=== PATIENT | male | born 1960 | race African-American/Black ===

== ENCOUNTER 2017-06-06 02:06 | Inpatient (IN) | payer MEDICAID ==
[2017-06-06 02:42] VITALS: BP 129/78
[2017-06-06] MEDS ORDERED: Morphine Sulfate 2 mg/mL 1mL Syr IVP PRN (03:14)
[2017-06-06] MEDS ORDERED: Magnesium Hydroxide (MOM) 30 mL UDC PO PRN (03:14)
[2017-06-06] MEDS ORDERED: Maalox 30 mL Cup PO PRN (03:14)
[2017-06-06] MEDS ORDERED: Levofloxacin 500mg/100mL 500 MG/100 ML BAG IV ONE (03:30)
[2017-06-06] MEDS: D5-0.9%NS 1,000 ML IV SCH (04:23)
[2017-06-06 04:24] LABS: URINE BILIRUBIN NEGATIVE (NEGATIVE); URINE BLOOD NEGATIVE (NEGATIVE); URINE GLUCOSE (UA) NEGATIVE (NEGATIVE); URINE KETONE NEGATIVE (NEGATIVE); URINE PH 6.5 (4.6 - 8.0); URINE PROTEIN NEGATIVE (NEGATIVE); URINE UROBILINOGEN 0.2 E.U./dL (0.2 - 1.0)
[2017-06-06 04:34] LABS: URINE COLOR YELLOW
[2017-06-06 04:35] LABS: URINE BACTERIA NONE SEEN /hpf (NONE SEEN); URINE EPITHELIAL CELLS NONE SEEN /lpf (FEW); URINE RBC NONE SEEN /hpf (0-5); URINE WBC NONE SEEN /hpf (0-5)
[2017-06-06] MEDS: metroNIDAZOLE 500mg/NS 100mL 500 MG/100 ML BAG IV SCH ×3 (05:24→20:46)
[2017-06-06] MEDS: Multivitamin Tab PO SCH (08:57)
[2017-06-06] MEDS: Levofloxacin 500mg/100mL Premix Bag IV SCH (08:59)
[2017-06-06] MEDS: Hydrocodone/APAP 10 mg/325 mg Tab PO PRN ×2 (09:12→20:45)
[2017-06-06 10:25] LABS: HEMATOCRIT 24.1 % (39.0-49.0); MEAN CELL VOLUME 73.2 fl (80-99); MEAN CORPUSCULAR HEMOGLOBIN 22.8 pg (26.0-30.0); MEAN CORPUSCULAR HGB CONC 31.1 pg (28.0-36.0); MEAN PLATELET VOLUME 7.2 fl; PLATELET COUNT 393 Th/cmm (150-400); RED BLOOD COUNT 3.29 Mil/cmm (4.30-5.70); RED CELL DISTRIBUTION WIDTH 20.4 % (11.5-20.0); WHITE BLOOD COUNT 7.9 Th/cmm (4.8-10.8)
[2017-06-06 10:52] LABS: HEMOGLOBIN 7.5 gm/dL (13.2-17.3)
[2017-06-06 11:56] LABS: ALB/GLOB RATIO 0.9 (1.0-1.8); ALKALINE PHOSPHATASE 110 U/L (34-104); ANION GAP 8.5 (7.0-16.0); BILIRUBIN,TOTAL 0.2 mg/dL (0.3-1.0); BUN - UREA NITROGEN 9 mg/dL (7-25); CALCIUM SERUM 7.8 mg/dL (8.6-10.3); CHLORIDE 108 mEq/L (98-107); CREATININE - SERUM 0.6 mg/dL (0.7-1.3); GLUCOSE 106 mg/dL (70-105); SGOT 18 U/L (13-39); SGPT/ALT 10 U/L (7-52); SODIUM SERUM 138 mEq/L (136-145)
[2017-06-06 12:29] LABS: POTASSIUM SERUM 2.5 mEq/L (3.5-5.1)
[2017-06-06] MEDS ORDERED: Potassium Chloride 20 mEq ER Tab PO ONE (13:00)
[2017-06-06] MEDS: Potassium Chloride 20 mEq ER Tab PO SCH ×2 (13:17→17:12)
[2017-06-06 13:53] LABS: ANISOCYTOSIS 1+; BAND NEUTROPHILE 10 % (0-10); MICROCYTOSIS 2+; NEUTROPHILS 81 % (40-80); PLATELET ESTIMATE ADEQUATE (NORMAL); PLATELET MORPHOLOGY PLATELET CLUMPS SEEN (NORMAL); TOTAL CELLS COUNTED 100
[2017-06-06] MEDS: POTASSIUM CHLORIDE IV SCH ×2 (14:23→22:33)
[2017-06-06] MEDS: SODIUM CHLORIDE 0.9% IV SCH ×2 (14:23→22:33)
[2017-06-06] MEDS: LIDOCAINE IV SCH ×2 (14:23→22:33)
--- NOTE | 2017-06-06 17:41 | History & Physical ---
ADMIT DATE: 06/06/2017 CHIEF COMPLAINT: ____. HISTORY OF PRESENT ILLNESS: The patient is a 57-year-old -[place] male who presented with abdominal pain for one ____ and generalized weakness. The patient ____ generalized weakness ____. No ____ or head injury. The patient's diarrhea going off and on for the last 2 months. The patient states the diarrhea is nonbloody. ____. ____ for 2 months ____. 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 PAST SURGICAL HISTORY: Negative, ____. SOCIAL HISTORY: No reports of smoking or drug use. PHYSICAL EXAMINATION: GENERAL: The patient is awake, alert. HEENT: Normocephalic, atraumatic. Extraocular movements intact. Oropharynx clear. NECK: Supple. No thyromegaly. CARDIOVASCULAR: S1, S2, tachycardic. RESPIRATORY: Clear. No wheezing or rhonchi. GASTROINTESTINAL: Soft, distended, tender. Positive bowel sounds. GENITOURINARY: No CVA tenderness. No suprapubic tenderness. BACK: No midline tenderness. EXTREMITIES: Equal pulses bilaterally. Positive edema. PSYCHIATRIC: Negative. SKIN: Negative. NEUROLOGIC: Intact. Extraocular movements are intact. VITAL SIGNS: On admission, temperature 98.5, pulse 72, blood pressure 129/78, respiratory rate 20, O2 98%. LABORATORY DATA: Labs on admission are as follows: Hematology: WBC ____, hemoglobin 7.5, hematocrit 24.1 and platelet count of 293, ____ neutrophils, 4% lymphocytes. ESR is 97. Chemistry: Sodium 138, potassium 3.5, chloride 108, bicarbonate 24, anion gap 8.5, BUN 9, creatinine 0.7. GFR is more than 60. Glucose 106, calcium 7.8, total bilirubin 0.2, AST 18, ALT 10, alkaline phosphatase 110, total protein ____, ____, albumin 2.2. Urinalysis negative. IMPRESSION: 1. Colitis. 2. Hypokalemia. 3. Near syncope. 4. Dehydration. 5. Human immunodeficiency virus/acquired immune deficiency syndrome. 6. History of colon transplant. 7. Anemia. 8. Hyperglycemia. 9. Hypercalcemia. 10. ____, severe. PLAN: The patient admitted to medical/surgical unit, seen by Dr. Jerzy Pritchett. Obtain further labs and consultation as needed. JOB# [id number]
[2017-06-06] MEDS ORDERED: VTE Chemical Prophylaxis Screen/Admission MC PRN (18:15)
--- NOTE | 2017-06-06 21:08 | Admit Criteria Form ---
Admit Criteria Forms - Admit Criteria Diagnosis: ABDOMINAL PAIN Clinical Indications for Admission to Inpatient Care (Place 'X' for any and all applicable criteria): Admission is indicated for ANY ONE of the following(1)(2)(3)(4)(5): [X]I. Inpatient admission required rather than observation care (Also use Abdominal Pain: Observation Care, as appropriate) because of ANY ONE of the following: [ ]a) Severe pain requiring acute inpatient management [ ]b) Identification of etiology/finding that requires inpatient care (eg, aortic dissection, free air) [ ]c) Absent bowel sounds with complete ileus(6) [ ]d) Suspected toxic megacolon [ X]e) Severe electrolyte abnormalities requiring inpatient care [ ]f) High fever or infection requiring inpatient admission as indicated by ANY ONE of following(7)(8): [ ] i) Appropriate outpatient or observational care antimicrobial treatment unavailable, not effective, or not feasible [ ] ii) Documented bacteremia [ ] iii) Temperature > 104.9 degrees F (oral) [ ] iv) T >103.1 F (oral) or < 96.8 F(rectal) that does not respond to all emergency treatment measures [ ]g) Signs of intestinal obstruction [B] [ ]h) Hemodynamic instability [ ]i) IV fluid to replace significant ongoing losses (greater than 3 L/m2 per day) (12)(13) [ ]j) Percutaneous or open drainage (eg, abscess, biliary tract ) procedures [ ]k) Parenteral nutrition regimen that must be implemented on inpatient basis [X]l) Other condition,treatment or monitoring requiring inpatient admission. [ ]II. Peritoneal signs present [ ]III. Surgery needed that cannot be performed on an ambulatory basis. [ ]IV. Evaluation requires patient to not eat or drink for extended period ( eg, more than 24 hours). [ ]V. Contraindications and/or Inappropriate clinical situations for Observational Care in patients with abdominal pain, when ANY ONE of the following is required: [ ]a) Thorough evaluation is required to prevent catastrophic events due to delays in diagnosing (e.g.Mesenteric ischemia) 1,3 [ ]b) Patient with severe pathology or with chronic symptoms unlikely to improve in the ED stay (3) [ ]. General contraindications and/or Inappropriate clinical situations for Observational Care in patients with abdominal pain, when ANY ONE of the following is required: [ ]a) Prediction of prolongation of LOS based on ANY ONE of the following may be considered as a contraindication for observational care 2, 3, 4, 5, 6, 7, 8, 9, 10, 11 [ ]i) Age > 65 yrs. [ ]ii) Patient arriving by ambulance [ ]iii) Patient with high acuity [ ]iv) Patient requiring vital sign monitoring [ ]v) Patient on IV medication [ ]b) Systolic blood pressures 180mmHg 3,12 [ ]c) Patient with altered mental status including delirium and other alteration of consciousness, (3) [ ]d) Patient whose discharge disposition will be to a residential home or rehabilitation home should not be managed in Emergency Department Observation Unit. CMS rule requires 3 days hospital stay before such placement.3,13 [ ]e) Patient with failure to thrive due to broad array of etiologies 3,16,17 [ ]f) Inability to ambulate 3,14 Extended stay beyond goal length of stay may be needed for(2)(3): [ ]a) Persistent abdominal pain with suspected intra-abdominal process [ ]b) Diagnosed condition requiring continued stay (e.g., pancreatitis, complicated diverticulitis) [ ]c) Surgery (e.g., colectomy) The original [employer] content created by [employer] has been revised. The portions of the content which have been revised are identified through the use of italic text or in bold, and [facility] has neither reviewed nor approved the modified material.All other unmodified content is copyright [employer]. Please see references footnoted in the original [facility] edition 2016 Admit Criteria Met?: Yes
--- NOTE | 2017-06-06 23:00 | Consultation ---
DATE OF CONSULTATION: 06/06/2017 GI CONSULT ADDENDUM MEDICATIONS: Here are Tylenol, [place], Maalox, Levaquin, Zestril, Ativan, milk of magnesia, Flagyl, morphine, multivitamin, and Zofran. PHYSICAL EXAMINATION: VITAL SIGNS: Temperature of 99.4, blood pressure 132/75, pulse of 80, respirations 19, O2 sats 98%. GENERAL: The patient is well-developed, thin male in no acute distress. CARDIOVASCULAR: Regular rate and rhythm. ABDOMEN: Soft, nontender, nondistended. EXTREMITIES: No edema. LABORATORY DATA: WBC 7.9, hemoglobin 7.5, MCV 73, platelet count is 393, creatinine is 0.6. Liver enzymes are essentially normal except for alkaline phosphatase 110. IMPRESSION: 1. Diarrhea, likely chronic, could be from multiple etiologies including CMV or infectious colitis, and less likely neoplasm or polyps. CT at [facility] did show acute anemia, most likely could be from GI blood loss or anemia of chronic disease, etc. 2. History of human immunodeficiency virus and acquired immunodeficiency syndrome. RECOMMENDATIONS: 1. We will check stool studies. 2. Check anemia labs. 3. May need upper endoscopy and colonoscopy if stool OB is positive here. Otherwise, outpatient GI workup can be done via the patient's HIV clinic, and the patient has regular outpatient followup. 4. Diet as tolerated. Thank you, Dr. Jn Pritchett for involving us in the care of your patient. If you have any further questions, please call us. JOB# [id number] SHERI
--- NOTE | 2017-06-07 02:12 | Consultation ---
DATE OF CONSULTATION: 06/06/2017 ADDENDUM HISTORY OF PRESENT ILLNESS: A 57-year-old male with history of HIV and possible AIDS with likely poor control on his HIV medications and possible noncompliance. He resides in [place]. He presented to the local [facility] in [facility] and was transferred to this facility for further evaluation. For the past year, he has been having diarrhea, probably about 5-6 times a day, nonbloody, and somewhat watery. He also has vague abdominal pain. He has chronic anemia. He never had a previous endoscopy or colonoscopy. We were asked to evaluate the patient for his diarrhea. He also has multiple complaints including peripheral neuropathy. DICTATION ENDED HERE SEE SEPARATELY DICTATED NOTE. JOB# [id number] SHERI
[2017-06-07] MEDS: D5-0.9%NS 1,000 ML IV SCH ×3 (04:27→22:30)
[2017-06-07] MEDS: metroNIDAZOLE 500mg/NS 100mL 500 MG/100 ML BAG IV SCH ×3 (04:28→21:46)
[2017-06-07 08:14] LABS: ALB/GLOB RATIO 0.9 (1.0-1.8); ALKALINE PHOSPHATASE 108 U/L (34-104); ANION GAP 7.4 (7.0-16.0); BILIRUBIN,TOTAL 0.2 mg/dL (0.3-1.0); BUN - UREA NITROGEN 12 mg/dL (7-25); CALCIUM SERUM 8.1 mg/dL (8.6-10.3); CARBON DIOXIDE 22.2 mEq/L (21.0-31.0); CHLORIDE 115 mEq/L (98-107); CREATININE - SERUM 0.6 mg/dL (0.7-1.3); GLUCOSE 81 mg/dL (70-105); LDH = LACTIC DEHYDROGENASE 180 U/L (140-271); LIPASE 21 U/L (11-82); POTASSIUM SERUM 3.6 mEq/L (3.5-5.1); SGOT 18 U/L (13-39); SGPT/ALT 10 U/L (7-52); SODIUM SERUM 141 mEq/L (136-145)
[2017-06-07] MEDS: Multivitamin Tab PO SCH (09:20)
[2017-06-07 10:54] LABS: INR 1.12 (0.5-1.4); PROTHROMBIN TIME (TEST) 11.7 SECONDS (9.5-11.5)
[2017-06-07] MEDS: Hydrocodone/APAP 10 mg/325 mg Tab PO PRN ×2 (12:15→20:18)
[2017-06-07] MEDS: Levofloxacin 500mg/100mL Premix Bag IV SCH (13:47)
[2017-06-07] MEDS: Hydrocodone/APAP 5mg/325mg Tab PO PRN (22:26)
--- NOTE | 2017-06-08 03:08 | Progress Notes ---
DATE: 06/07/2017 SUBJECTIVE: The patient is awake and alert. The patient is on IV antibiotics. OBJECTIVE: VITAL SIGNS: Temperature is 98.2, pulse of 92, blood pressure 138/77, respiratory rate 18, O2 sat 96% on room air. CARDIOVASCULAR: S1 and S2. RESPIRATORY: Clear. GASTROINTESTINAL: Soft. Positive bowel sounds. LABORATORY DATA: Hematology shows WBC 7.8, hemoglobin 9.1, hematocrit ____, platelet count 393,000. ESR 55, PT 11.7, INR 1.12. Chemistry: Sodium 141, potassium 3.6, chloride 113, bicarb 22, anion gap 7.4, BUN 12, creatinine 0.6. GFR is 160, glucose 81, calcium is 8.1, total bili 0.2, AST 18, ALT 10, alkaline phosphatase 108. LDH 180, total protein 4.9, albumin 2.3, globulin 2.6, and lipase 21. MICROBIOLOGY: MRSA screening from 06/06/2017 negative. Blood from 06/06/2017 shows no growth. ASSESSMENT: 1. Colitis. 2. HIV/AIDS. 3. History of corneal transplant. 4. Anemia (improved). 5. ____. 6. Hypoalbuminemia. 7. Protein-calorie malnutrition, severe. 8. Sepsis. PLAN: Continue current medication and treatment. Obtain labs in a.m. Awaiting culture results. Further recommendation per consultation service. JOB# [id number]
--- NOTE | 2017-06-08 03:20 | Consultation ---
DATE OF CONSULTATION: 06/06/2017 PRIMARY CARE PHYSICIAN: Dr. Pritchett. HISTORY OF PRESENT ILLNESS: This is a 57-year-old male who was brought to the Emergency Room with complaint of diarrhea. The patient also has HIV, was admitted to [facility]. Infectious consultation was called for further treatment. The patient has been taking Genvoya every day; however, he is not following with his HIV provider. GI consultation was called. PAST MEDICAL HISTORY: HIV. FAMILY HISTORY: Negative. SOCIAL HISTORY: Nonsmoker. REVIEW OF SYSTEMS: A 14-point review of system negative except above. PHYSICAL EXAMINATION: GENERAL: Alert, awake. Left eye visual impairment, thin built. HEENT: Mild pallor, no icterus or plaque. NECK: Supple. LUNGS: ____ breath sounds bilateral. CARDIOVASCULAR: S1, S2. ABDOMEN: Soft, bowel sounds present. LYMPHATIC: No thyromegaly, no cervical lymph nodes. DIAGNOSES: 1. Diarrhea, rule out toxic versus bacteria versus viral versus parasite. Stool studies needed. Empirically started on levofloxacin and Flagyl. GI evaluation for further workup. 2. Human immunodeficiency virus. Continue Genvoya. Rest of the care as ordered in [facility]. Thank you, Dr. Pritchett, for this consultation. JOB# [id number]
[2017-06-08] MEDS: metroNIDAZOLE 500mg/NS 100mL 500 MG/100 ML BAG IV SCH (04:26)
[2017-06-08 07:43] LABS: BUN - UREA NITROGEN 11 mg/dL (7-25); BUN/CREATININE RATIO 18.3; CALCIUM SERUM 7.7 mg/dL (8.6-10.3); CARBON DIOXIDE 22.2 mEq/L (21.0-31.0); CHLORIDE 112 mEq/L (98-107); CREATININE - SERUM 0.6 mg/dL (0.7-1.3); GLUCOSE 87 mg/dL (70-105); HEMATOCRIT 24.9 % (39.0-49.0); MEAN CELL VOLUME 73.5 fl (80-99); MEAN CORPUSCULAR HEMOGLOBIN 22.8 pg (26.0-30.0); MEAN CORPUSCULAR HGB CONC 30.9 pg (28.0-36.0); MEAN PLATELET VOLUME 7.3 fl; NEUTROPHILE ABSOLUTE 7.9 Th/cmm (1.8-8.0); PLATELET COUNT 391 Th/cmm (150-400); POTASSIUM SERUM 3.2 mEq/L (3.5-5.1); RED BLOOD COUNT 3.38 Mil/cmm (4.30-5.70); RED CELL DISTRIBUTION WIDTH 20.4 % (11.5-20.0); SODIUM SERUM 139 mEq/L (136-145); WHITE BLOOD COUNT 8.2 Th/cmm (4.8-10.8)
[2017-06-08 07:44] LABS: ALB/GLOB RATIO 0.9 (1.0-1.8); ALKALINE PHOSPHATASE 138 U/L (34-104); BILIRUBIN,TOTAL 0.2 mg/dL (0.3-1.0); SGOT 23 U/L (13-39); SGPT/ALT 11 U/L (7-52)
[2017-06-08] MEDS: Levofloxacin 500mg/100mL Premix Bag IV SCH (08:53)
[2017-06-08] MEDS: Hydrocodone/APAP 5mg/325mg Tab PO PRN (08:54)
[2017-06-08] MEDS: Multivitamin Tab PO SCH (08:54)
[2017-06-08 09:24] LABS: HEMOGLOBIN 7.7 gm/dL (13.2-17.3)
[2017-06-08 09:25] LABS: TOTAL CELLS COUNTED 100
[2017-06-08 09:26] LABS: BAND NEUTROPHILE 9 % (0-10); NEUTROPHILS 84 % (40-80)
[2017-06-08] MEDS ORDERED: Potassium Chloride 20 mEq ER Tab PO ONE (09:33)
[2017-06-08 12:13] LABS: FERRITIN 703 ng/mL (30-400); FOLIC ACID 3.4 ng/mL (>3.0); IRON SATURATION 9 % (15-55); TIBC (LCI) 115 ug/dL (250-450); UIBC 105 ug/dL (111-343)
[2017-06-08] MEDS: Ferrous Sulfate 325 MG TAB PO SCH ×2 (14:09→20:27)
[2017-06-08] MEDS: Hydrocodone/APAP 10 mg/325 mg Tab PO PRN ×2 (14:24→20:27)
[2017-06-08] MEDS: D5-0.9%NS 1,000 ML IV SCH (15:22)
--- NOTE | 2017-06-08 22:15 | Progress Notes ---
DATE: 06/08/2017 SUBJECTIVE: The patient is awake, alert. The patient is on IV antibiotics. The patient is on IV fluids. The patient has diarrhea. PHYSICAL EXAMINATION: VITAL SIGNS: Temperature 97.6, pulse of 97, blood pressure ____, respiratory rate 20, O2 sat ____% on room air. CARDIOVASCULAR: S1 and S2. RESPIRATORY: Clear. GASTROINTESTINAL: Soft. Positive bowel sounds. LABORATORY DATA: On admission, hematology: WBC 8.2, hemoglobin is 7.7, hematocrit 4.9, platelet count of 391. Chemistry: Sodium 139, potassium 3.2, chloride 112, bicarbonate 22, anion gap 8.0, BUN 11, creatinine 0.6, GFR is 160, glucose 87, calcium ____. Total bili 0.2, AST 23, ALT 11, alkaline phosphatase of 138. Total protein 4.3, albumin 2.0, globulin 2.0. Microbiology: MRSA screening from 06/06/2017 negative. Blood culture from 06/06/2017 shows no growth. Stool for C. diff 06/07/2017 negative. ASSESSMENT: 1.Sepsis. 2.Diarrhea. 3.Human immunodeficiency virus/acquired immune deficiency syndrome. 4.History of corneal transplant. 5.Anemia. 6.Hypoalbuminemia. 7.Protein calorie malnutrition, severe. 8.Colitis. PLAN: Continue current medication and treatment. Obtain labs in a.m. Awaiting final culture results. nurse care manager for discharge planning. JOB# [id number]
--- NOTE | 2017-06-09 05:01 | Progress Notes ---
DATE: 06/08/2017 SUBJECTIVE: Tolerating diet well. No abdominal pain, still some diarrhea. OBJECTIVE: VITAL SIGNS: Noted. GENERAL: The patient is a well-developed, well-nourished male in no acute distress. CARDIOVASCULAR: Regular rate and rhythm. LUNGS: With occasional rhonchi at the bases. ABDOMEN: Soft, nontender, nondistended. EXTREMITIES: No edema. LABORATORY DATA AND IMAGING: Complete blood count is normal, hemoglobin is 7.7. INR is normal. Creatinine is 0.6. Iron is 10, ____ saturation is 9. Ferritin is 703, which is high. Liver enzymes are essentially normal except for alkaline phosphatase, mildly elevated to 138. B12 and folic acid levels are normal. Stool OB is negative. IMPRESSION: 1.Chronic diarrhea for the last 1 year. This could be from a nonspecific colitis, from infectious or ischemic etiology, ____ a possibility of an occult neoplasm. 2.Anemia, which is multifactorial, could be from a combination of anemia of chronic disease and iron deficiency. 3.Human immunodeficiency virus/acquired immune deficiency syndrome. RECOMMENDATIONS: 1.Given the patient's social status and the fact that he resides in [place], it would be most prudent that he get a colonoscopy done ____ by his HIV clinic. That way results would be available to the clinic and then there would be no need to repeat workup. The patient at this point does not appear ill and inpatient endoscopic workup is not warranted. 2.Monitor hemoglobin and transfuse as necessary. 3.Iron supplementation as deemed necessary. 4.Continue oral Flagyl. 5.HIV care as per ID enterprise resource planning consultant as an inpatient and as an outpatient. Thank you. JOB# [id number]
[2017-06-09] MEDS: D5-0.9%NS 1,000 ML IV SCH ×2 (05:26→17:17)
[2017-06-09] MEDS: Hydrocodone/APAP 10 mg/325 mg Tab PO PRN ×2 (05:28→14:14)
[2017-06-09 07:49] LABS: MEAN CORPUSCULAR HEMOGLOBIN 22.9 pg (26.0-30.0); MEAN CORPUSCULAR HGB CONC 31.8 pg (28.0-36.0); MEAN PLATELET VOLUME 7.2 fl; PLATELET COUNT 367 Th/cmm (150-400); RED BLOOD COUNT 3.16 Mil/cmm (4.30-5.70); RED CELL DISTRIBUTION WIDTH 20.5 % (11.5-20.0); WHITE BLOOD COUNT 6.8 Th/cmm (4.8-10.8)
[2017-06-09 08:00] LABS: ANION GAP 8.5 (7.0-16.0); BUN - UREA NITROGEN 8 mg/dL (7-25); BUN/CREATININE RATIO 13.3; CALCIUM SERUM 7.6 mg/dL (8.6-10.3); CARBON DIOXIDE 20.7 mEq/L (21.0-31.0); CHLORIDE 110 mEq/L (98-107); CREATININE - SERUM 0.6 mg/dL (0.7-1.3); GLUCOSE 89 mg/dL (70-105); POTASSIUM SERUM 3.2 mEq/L (3.5-5.1); SODIUM SERUM 136 mEq/L (136-145)
[2017-06-09] MEDS: Ferrous Sulfate 325 MG TAB PO SCH ×3 (08:51→20:41)
[2017-06-09] MEDS: Multivitamin Tab PO SCH (08:51)
[2017-06-09] MEDS: Hydrocodone/APAP 5mg/325mg Tab PO PRN (08:52)
[2017-06-09 09:00] LABS: HEMATOCRIT 22.8 % (39.0-49.0); HEMOGLOBIN 7.2 gm/dL (13.2-17.3)
[2017-06-09] MEDS: Levofloxacin 500mg/100mL Premix Bag IV SCH (09:24)
[2017-06-09 10:10] LABS: ANISOCYTOSIS 1+; BAND NEUTROPHILE 9 % (0-10); MICROCYTOSIS 2+; NEUTROPHILS 81 % (40-80); PLATELET ESTIMATE ADEQUATE (NORMAL); PLATELET MORPHOLOGY NORMAL (NORMAL); TOTAL CELLS COUNTED 100
[2017-06-09] MEDS ORDERED: Potassium Chloride 20 mEq ER Tab PO ONE (12:33)
--- NOTE | 2017-06-09 12:35 | Infectious Disease Prog Note ---
Infectious Disease Subjective - Review of Systems Service Date: 06/09/17 Subjective: cc hiv gastroenteritis hpi- pt on iv bax d/w dr hartmann ros no fver o/e vss chest claer abd soft ext no edema dx hiv genvoya gastroenteritis po levaquib flagyl x 10 days Infectious Disease Objective - Results Result Diagrams: 06/09/17 06:40 06/09/17 06:40 Recent Labs: Laboratory Last Values WBC 6.8 Th/cmm (4.8-10.8) 06/09/17 06:40 Corrected WBC (auto) Cancelled 06/07/17 07:20 RBC 3.16 Mil/cmm (4.30-5.70) L 06/09/17 06:40 Hgb 7.2 gm/dL (13.2-17.3) L* 06/09/17 06:40 Hct 22.8 % (39.0-49.0) L* 06/09/17 06:40 MCV 72.0 fl (80-99) L 06/09/17 06:40 MCH 22.9 pg (26.0-30.0) L 06/09/17 06:40 MCHC Differential 31.8 pg (28.0-36.0) 06/09/17 06:40 RDW 20.5 % (11.5-20.0) H 06/09/17 06:40 Plt Count 367 Th/cmm (150-400) 06/09/17 06:40 MPV 7.2 fl 06/09/17 06:40 Neutrophils % Cancelled 06/07/17 07:20 Band Neutrophils % 9 % (0-10) 06/09/17 06:40 Lymphocytes % Cancelled 06/07/17 07:20 Monocytes % Cancelled 06/07/17 07:20 Eosinophils % Cancelled 06/07/17 07:20 Basophils % Cancelled 06/07/17 07:20 Neutrophils (Manual) 81 % (40-80) H 06/09/17 06:40 Neutrophils # Cancelled 06/07/17 07:20 Lymphocytes 6 % (20-50) L 06/09/17 06:40 Lymphocytes # Cancelled 06/07/17 07:20 Monocytes 4 % (2-10) 06/09/17 06:40 Monocytes # Cancelled 06/07/17 07:20 Eosinophils # Cancelled 06/07/17 07:20 Basophils # Cancelled 06/07/17 07:20 Atypical Lymphocytes 1 % 06/06/17 09:30 Platelet Estimate ADEQUATE (NORMAL) 06/09/17 06:40 Platelet Morphology NORMAL (NORMAL) 06/09/17 06:40 Anisocytosis 1+ 06/09/17 06:40 Microcytosis 2+ 06/09/17 06:40 RBC Morph Micro Appear ABNORMAL (NORMAL) 06/09/17 06:40 Smear Path Review Cancelled 06/07/17 07:20 ESR 78 mm/hr (0-20) H 06/09/17 06:40 Total Retics Counted Cancelled 06/07/17 07:20 Absolute Retic Cancelled 06/07/17 07:20 Corrected Retic Count Cancelled 06/07/17 07:20 PT 11.7 SECONDS (9.5-11.5) H 06/07/17 10:14 INR 1.12 (0.5-1.4) 06/07/17 10:14 Sodium 136 mEq/L (136-145) 06/09/17 06:40 Potassium 3.2 mEq/L (3.5-5.1) L 06/09/17 06:40 Chloride 110 mEq/L (98-107) H 06/09/17 06:40 Carbon Dioxide 20.7 mEq/L (21.0-31.0) L 06/09/17 06:40 Anion Gap 8.5 (7.0-16.0) 06/09/17 06:40 BUN 8 mg/dL (7-25) 06/09/17 06:40 Creatinine 0.6 mg/dL (0.7-1.3) L 06/09/17 06:40 Est GFR ( Amer) > 60.0 ml/min (>90) 06/09/17 06:40 Est GFR (Non-Af Amer) > 60.0 ml/min 06/09/17 06:40 BUN/Creatinine Ratio 13.3 06/09/17 06:40 Glucose 89 mg/dL (70-105) 06/09/17 06:40 Calcium 7.6 mg/dL (8.6-10.3) L 06/09/17 06:40 Iron 10 ug/dL (38-169) L 06/07/17 10:14 TIBC 115 ug/dL (250-450) L 06/07/17 10:14 Iron Saturation 9 % (15-55) L 06/07/17 10:14 Unsaturated IBC 105 ug/dL (111-343) L 06/07/17 10:14 Ferritin 703 ng/mL (30-400) H 06/07/17 10:14 Total Bilirubin 0.2 mg/dL (0.3-1.0) L 06/08/17 06:55 AST 23 U/L (13-39) 06/08/17 06:55 ALT 11 U/L (7-52) 06/08/17 06:55 Alkaline Phosphatase 138 U/L (34-104) H 06/08/17 06:55 Lactate Dehydrogenase 180 U/L (140-271) 06/07/17 07:20 C-Reactive Protein 7.3 mg/dL (0.0-0.9) H 06/08/17 06:55 Total Protein 4.3 gm/dL (6.0-8.3) L 06/08/17 06:55 Albumin 2.0 gm/dL (4.2-5.5) L 06/08/17 06:55 Globulin 2.3 gm/dL 06/08/17 06:55 Albumin/Globulin Ratio 0.9 (1.0-1.8) L 06/08/17 06:55 Lipase 21 U/L (11-82) 06/07/17 07:20 Vitamin B12 687 pg/mL (211-946) 06/07/17 10:14 Folic Acid 3.4 ng/mL (>3.0) 06/07/17 10:14 Urine Source CLEAN C 06/06/17 03:40 Urine Color YELLOW 06/06/17 03:40 Urine Clarity CLEAR (CLEAR) 06/06/17 03:40 Urine pH 6.5 (4.6 - 8.0) 06/06/17 03:40 Ur Specific [place] 1.010 (1.005-1.030) 06/06/17 03:40 Urine Protein NEGATIVE mg/dL (NEGATIVE) 06/06/17 03:40 Urine Glucose (UA) NEGATIVE mg/dL (NEGATIVE) 06/06/17 03:40 Urine Ketones NEGATIVE mg/dL (NEGATIVE) 06/06/17 03:40 Urine Blood NEGATIVE (NEGATIVE) 06/06/17 03:40 Urine Nitrate NEGATIVE (NEGATIVE) 06/06/17 03:40 Urine Bilirubin NEGATIVE (NEGATIVE) 06/06/17 03:40 Urine Urobilinogen 0.2 E.U./dL (0.2 - 1.0) 06/06/17 03:40 Ur Leukocyte Esterase NEGATIVE (NEGATIVE) 06/06/17 03:40 Urine RBC NONE SEEN /hpf (0-5) 06/06/17 03:40 Urine WBC NONE SEEN /hpf (0-5) 06/06/17 03:40 Ur Epithelial Cells NONE SEEN /lpf (FEW) 06/06/17 03:40 Urine Bacteria NONE SEEN /hpf (NONE SEEN) 06/06/17 03:40 Stool Occult Blood NEGATIVE (NEGATIVE) 06/07/17 06:56 Stool Leukocyte NO WBC SEEN 06/07/17 06:56 Blood Type O POSITIVE 06/09/17 06:40 Antibody Screen NEGATIVE 06/09/17 06:40 Crossmatch See Detail 06/09/17 06:40 - Physical Exam Vitals and I&O: Vital Signs Temp 97.2 F 06/09/17 08:00 Pulse 86 06/09/17 08:51 Resp 18 06/09/17 08:00 BP 127/88 06/09/17 08:51 Pulse Ox 97 06/09/17 08:00 Intake & Output 06/08/17 06/09/17 06/09/17 18:59 06:59 18:59 Intake Total 1100 1000 100 Balance 1100 1000 100 Weight (lbs) 76.204 kg Intake: Intake, IV Amount 1100 1000 100 D5-0.9%Ns 1,000 ml @ 100 1000 1000 mls/hr IV .Q10H [facility] Rx#: [id number] Levofloxacin 500mg/100mL 100 100 500 mg In 100 ml @ 100 mls/hr IV Q24HR [facility] Rx#: [id number] Other: Stool Characteristics Liquid Brown Active Medications: Current Medications Acetaminophen (Tylenol) 650 mg PO Q6H PRN PRN Reason: Mild Pain/Headache/T above 101 Stop: 08/05/17 03:13 Acetaminophen/Hydrocodone Bitart ([place] 10 Mg/325 Mg) 1 tab PO Q6H PRN PRN Reason: Pain (Severe) Stop: 08/05/17 03:13 Last Admin: 06/09/17 05:28 Dose: 1 tab Acetaminophen/Hydrocodone Bitart ([place] 5mg/325mg) 1 tab PO Q6H PRN PRN Reason: Moderate Pain Stop: 08/05/17 03:13 Last Admin: 06/09/17 08:52 Dose: 1 tab Al Hydrox/Mg Hydrox/Simethicone (Maalox) 30 ml PO Q6H PRN PRN Reason: Dyspepsia Stop: 08/05/17 03:13 Ferrous Sulfate (Iron) 325 mg PO TID [facility] Stop: 08/07/17 13:59 Last Admin: 06/09/17 08:51 Dose: 325 mg Dextrose/Sodium Chloride (D5-0.9%Ns) 1,000 mls @ 100 mls/hr IV .Q10H [facility] Stop: 08/05/17 03:14 Last Admin: 06/09/17 05:26 Dose: 100 mls/hr Levofloxacin (Levaquin Pb) 500 mg in 100 mls @ 100 mls/hr IV Q24HR [facility] Stop: 08/05/17 08:59 Last Infusion: 06/09/17 11:50 Dose: Infused Lisinopril (Zestril) 5 mg PO DAILY [facility] Stop: 08/05/17 08:59 Last Admin: 06/09/17 08:51 Dose: 5 mg Lorazepam (Ativan) 1 mg PO Q6H PRN; Protocol PRN Reason: Anxiety/Agitation Stop: 08/05/17 03:13 Last Admin: 06/08/17 00:18 Dose: 1 mg Magnesium Hydroxide (Milk Of Magnesia) 30 ml PO HS PRN PRN Reason: Constipation Stop: 08/05/17 03:13 Metronidazole (Flagyl) 500 mg PO TID [facility] [place] Stop: 08/07/17 13:59 Last Admin: 06/09/17 08:51 Dose: 500 mg Miscellaneous (Vte Chemical Prophylaxis Screen/ Admission) 1 ea [facility] PRN PRN PRN Reason: PROTOCOL Stop: 08/05/17 18:14 Morphine Sulfate (Morphine) 2 mg IVP Q4H PRN PRN Reason: SEVERE PAIN Stop: 08/05/17 16:33 Multivitamins/Vitamin C (Theragran) 1 tab PO DAILY [facility] Stop: 08/05/17 08:59 Last Admin: 06/09/17 08:51 Dose: 1 tab Ondansetron HCl (Zofran Odt) 4 mg PO Q6H PRN PRN Reason: Nausea / Vomiting Stop: 08/05/17 03:13 Last Admin: 06/06/17 21:03 Dose: 4 mg Nutritional Asmnt/Malnutr-PDOC - Dietary Evaluation Malnutrition Findings (Please click <Entered> for more info): Nutritional Asmnt/Malnutrition Start: 06/06/17 11: 52 Text: Status: Complete Freq: Document 06/08/17 17:50 [facility] (Rec: 06/08/17 18:02 [facility] [id number]) Nutritional Asmnt/Malnutrition Patient General Information Nutritional Screening High Risk Screening Diagnosis Colitis, hypokalemia, near syncope, dehydration Pertinent Medical Hx/Surgical Hx 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 Pt was awake and alert during time of visit. Mild fat depletion observed to shoulders and chest. Pt is tall and with a lean body. Pt reports UBW 220# years ago. Pt reports having a poor appetite prior to admit in which he couldn't tolerate salty foods. Pt eats 3 times a day. Current Diet Order/ Nutrition Support Cardiac Patient / S.O Can Pertinent Medications D5-0.9 NS, Iron, Levaquin, Flagyl, Morphine, Theragran, Zofran Pertinent Labs (06/07) Iron 10L, Iron Saturation 9L, Ferritin 703H, (06/08) K 3.2L, Alkaline Phosphatase 138H, Albumin 2L Nutritional Hx/Data Height 1.85 m Height (Calculated Centimeters) 185.4 Current Weight (lbs) 76.374 kg Weight (Calculated Kilograms) 76.4 Weight (Calculated Grams) 50056.6 Usual body Weight (lbs) 220 % Usual Body Weight 77 [place] Body Weight 184 % [place] Body Weight 92 Recent Weight Change Yes Weight Status Approriate GI Symptoms GI Symptoms Diarrhea Food Allergies No Cultural/Ethnic/Oriental Orthodox Belief No cultural or moravian beliefs noted. Usual diet at home Regular Skin Integrity/Comment: [place] 18. Skin intact. Current %PO Good (75-100%) Estimated Nutritional Goals BEE in Kcals: Adj wt of IBW Calories/Kcals/Kg Based on IBW 83.6 kg to promote gradual wt gain Kcals Calculated 8774-4032 kcals/day (25-30 kcals/kg) Protein: Adj wt of IBW Protein g/kg: Based on IBW 83.6 kg to promote gradual wt gain Protein Calculated 84-105 gm/day (1-1.25 gm/kg) Fluid: ml 9296-7178 ml/day (30-35 ml/kg) Nutritional Problem 1. Problem Problem Inadequate energy intake related to Etiology increased estimated nutritional needs to promote gradual wt gain as evidenced by Signs/Symptoms: current diet is inadequate to meet estimated nutritional needs. Malnutrition Alert Body Fat Depletion (Non-Severe) Mild Depletion Protein-Calorie Malnutrition N/A Is there a minimum of two criteria No selected? Query Text:Check all the applicable criteria. A minimum of two criteria are recommended for diagnosis of either severe or non-severe malnutrition. Malnutrition Related to Morbid Obesity Malnutrition related to morbid obesity No Intervention/Recommendation Recommendations by RD Increase Calorie Intake Comments 1. Continue with Cardiac diet, per pt's preference. Monitor tolerance. 2. FNS to provide snacks between meals to help meet estimated nutritional needs. Expected Outcomes/Goals Expected Outcomes/Goals Have pt meet 100% of estimated nutritional needs with acceptable tolerance. Physician Parameters for PEM Normal Weight % 90% - 110% (Normal) Body Mass Index (BMI) 19 - 24 (Normal) Serum Albumin (g/dl) <2.4 (Severe)
--- NOTE | 2017-06-09 13:20 | Progress Notes ---
DATE: 06/09/2017 SUBJECTIVE: The patient is awake, alert. The patient is on IV fluids. The patient is on IV antibiotics. The patient was ordered for 2 units of packed RBC. PHYSICAL EXAMINATION: VITAL SIGNS: Temperature 98.2, pulse of 86, blood 127/88, respiratory rate 18, O2 sat ____ on room air. CARDIOVASCULAR: S1 and S2. LUNGS: Clear. GASTROINTESTINAL: Abdomen is soft. Positive bowel sounds. LABORATORY DATA: Hematology: WBC of 6.8, hemoglobin is 7.2 and hematocrit 22.8, platelet count of ____, 11% neutrophils, 6% lymphocytes, ESR 78. Chemistry: Sodium 136, potassium 3.2, chloride 110, bicarbonate 20, anion gap 8.5, BUN 8, creatinine 0.6, GFR is more than 60, glucose 89, calcium is 7.6. MICROBIOLOGY: MRSA screen from June 06 negative. Blood culture from June 06 shows no growth. Stool culture from June 07 shows negative for C. diff. ASSESSMENT: 1. Anemia. 2. Hypokalemia 3. Hypercalcemia. 4. Chronic diarrhea. 5. Human immunodeficiency virus/acquired immune deficiency syndrome. 6. History of corneal transplant. 7. Colitis. PLAN: Continue current medications and treatment. The patient ____ transfusion of packed RBC ____ today. We will correct electrolyte deficiency. Further consults as needed. systems software manager for discharge planning. JOB# [id number]
[2017-06-09] MEDS: Morphine Sulfate 4 mg/mL 1mL Syr IVP PRN (17:28)
[2017-06-10] MEDS: Morphine Sulfate 4 mg/mL 1mL Syr IVP PRN ×3 (01:09→11:23)
[2017-06-10] MEDS: D5-0.9%NS 1,000 ML IV SCH ×2 (06:16→19:21)
[2017-06-10 08:22] LABS: HEMOGLOBIN 8.4 gm/dL (13.2-17.3); MEAN CELL VOLUME 73.5 fl (80-99); MEAN CORPUSCULAR HEMOGLOBIN 23.4 pg (26.0-30.0); MEAN CORPUSCULAR HGB CONC 31.8 pg (28.0-36.0); MEAN PLATELET VOLUME 7.2 fl; PLATELET COUNT 344 Th/cmm (150-400); WHITE BLOOD COUNT 7.2 Th/cmm (4.8-10.8)
[2017-06-10 08:47] LABS: HEMATOCRIT 26.4 % (39.0-49.0)
[2017-06-10] MEDS: Multivitamin Tab PO SCH (08:51)
[2017-06-10] MEDS: Ferrous Sulfate 325 MG TAB PO SCH ×3 (08:51→20:54)
[2017-06-10 09:05] LABS: ANION GAP 7.3 (7.0-16.0); BUN - UREA NITROGEN 7 mg/dL (7-25); CALCIUM SERUM 7.8 mg/dL (8.6-10.3); CARBON DIOXIDE 20.9 mEq/L (21.0-31.0); CHLORIDE 111 mEq/L (98-107); CREATININE - SERUM 0.5 mg/dL (0.7-1.3); GLUCOSE 90 mg/dL (70-105); POTASSIUM SERUM 3.2 mEq/L (3.5-5.1); SODIUM SERUM 136 mEq/L (136-145)
[2017-06-10] MEDS: Levofloxacin 500mg/100mL Premix Bag IV SCH (09:12)
[2017-06-10 11:19] LABS: ANISOCYTOSIS 1+; BAND NEUTROPHILE 6 % (0-10); METAMYELOCYTE 2 % (0-0); MICROCYTOSIS 2+; NEUTROPHILS 79 % (40-80); PLATELET ESTIMATE ADEQUATE (NORMAL); PLATELET MORPHOLOGY NORMAL (NORMAL); TOTAL CELLS COUNTED 100
[2017-06-10] MEDS ORDERED: Potassium Chloride 20 mEq ER Tab PO ONE (11:58)
--- NOTE | 2017-06-10 23:54 | Progress Notes ---
DATE: 06/10/2017 SUBJECTIVE: The patient is asleep. The patient is on IV antibiotics. marketing operations manager arranging placement in a boarding care facility. OBJECTIVE: VITAL SIGNS: Temperature is 97.5, pulse 92, blood pressure 133/89, ____ on room air. CARDIOVASCULAR: S1 and S2. RESPIRATORY: Clear. GASTROINTESTINAL: Soft. Positive bowel sounds. LABORATORY DATA: Hematology, 7.2, hemoglobin is 8.4, hematocrit is 26.4, platelet count 344, 7% lymphocytes. Chemistry: Sodium 136, potassium 3.2, chloride ____, BUN 7, creatinine 0.5. GFR is 160, glucose 90, calcium 7.8. Microbiology: MRSA screen from 06/06/2017 is negative. Blood culture from 06/06/2017 shows no growth. Stool for C. diff from 06/07/2017 negative. ASSESSMENT: 1. Anemia. 2. Hypokalemia. 3. Hypocalcemia. 4. Chronic diarrhea. 5. HIV/AIDS. 6. History of corneal transplant. 7. Colitis. PLAN: Continue current medication and treatment. Obtain labs in a.m. We will correct potassium deficiency. marketing operations manager to arrange for placement in boarding care facility. Further consults. JOB# [id number]
[2017-06-11] MEDS: Morphine Sulfate 4 mg/mL 1mL Syr IVP PRN ×3 (00:54→21:34)
[2017-06-11] MEDS: Hydrocodone/APAP 10 mg/325 mg Tab PO PRN ×2 (02:44→17:05)
[2017-06-11 06:35] LABS: HEMATOCRIT 24.4 % (39.0-49.0); MEAN CELL VOLUME 73.5 fl (80-99); MEAN CORPUSCULAR HEMOGLOBIN 23.1 pg (26.0-30.0); MEAN CORPUSCULAR HGB CONC 31.5 pg (28.0-36.0); MEAN PLATELET VOLUME 7.1 fl; NEUTROPHILE ABSOLUTE 7.5 Th/cmm (1.8-8.0); PLATELET COUNT 335 Th/cmm (150-400); RED BLOOD COUNT 3.32 Mil/cmm (4.30-5.70); RED CELL DISTRIBUTION WIDTH 21.3 % (11.5-20.0); WHITE BLOOD COUNT 7.8 Th/cmm (4.8-10.8)
[2017-06-11 06:43] LABS: ALB/GLOB RATIO 0.9 (1.0-1.8); ALKALINE PHOSPHATASE 108 U/L (34-104); ANION GAP 6.8 (7.0-16.0); BILIRUBIN,TOTAL 0.3 mg/dL (0.3-1.0); BUN - UREA NITROGEN 8 mg/dL (7-25); CALCIUM SERUM 7.5 mg/dL (8.6-10.3); CARBON DIOXIDE 20.4 mEq/L (21.0-31.0); CHLORIDE 113 mEq/L (98-107); CREATININE - SERUM 0.5 mg/dL (0.7-1.3); GLUCOSE 96 mg/dL (70-105); POTASSIUM SERUM 3.2 mEq/L (3.5-5.1); SGOT 21 U/L (13-39); SGPT/ALT 13 U/L (7-52); SODIUM SERUM 137 mEq/L (136-145)
[2017-06-11 07:31] LABS: BAND NEUTROPHILE 3 % (0-10); NEUTROPHILS 87 % (40-80); TOTAL CELLS COUNTED 100
[2017-06-11 07:32] LABS: HEMOGLOBIN 7.7 gm/dL (13.2-17.3)
[2017-06-11] MEDS: Multivitamin Tab PO SCH (09:24)
[2017-06-11] MEDS: Ferrous Sulfate 325 MG TAB PO SCH ×3 (09:25→21:28)
[2017-06-11] MEDS: Levofloxacin 500mg/100mL Premix Bag IV SCH (09:54)
[2017-06-11] MEDS: D5-0.9%NS 1,000 ML IV SCH (09:55)
[2017-06-11] MEDS: Bismuth Subsalicylate 236mL PO SCH (17:04)
[2017-06-11] MEDS ORDERED: Potassium Chloride 20 mEq ER Tab PO SCH (18:04)
[2017-06-12] MEDS: Hydrocodone/APAP 10 mg/325 mg Tab PO PRN ×2 (02:31→08:38)
[2017-06-12] MEDS: D5-0.9%NS 1,000 ML IV SCH (02:32)
--- NOTE | 2017-06-12 02:32 | Progress Notes ---
DATE: 06/11/2017 SUBJECTIVE: The patient is awake, alert. The patient is receiving packed RBC. The patient is on IV antibiotics. The patient inpatient rehab therapy. PHYSICAL EXAMINATION: VITAL SIGNS: Temperature 99.8, pulse 96, blood pressure 145/82, respirations 19, saturation 97% on room air. CARDIOVASCULAR: S1, S2, is clear. ABDOMEN: Soft. Positive bowel sounds. LABORATORY DATA: Hematology: WBC of 7.8, hemoglobin 7.7, hematocrit 24.4, platelet count 335, 87% neutrophils, 5% lymphocytes. ESR is 53. Chemistry: Sodium 137, potassium 3.2, ____, bicarb 20, anion gap of 6.8, BUN 8, creatinine 0.5. GFR is 160, glucose 96, calcium ____. Total bili 0.3, AST 21, ALT 13, alkaline phosphatase is 108, CRP ____, ____ 4.3, albumin 2.0, globulin 2.3. MICROBIOLOGY: MRSA screen from 06/06/2017 negative. Blood culture from 06/06/2017 negative. Stool culture from 06/07/2017 negative. RADIOLOGIC TESTS: No tests. ASSESSMENT: 1. Anemia. 2. Hyperkalemia. 3. Hypercalcemia. 4. Hypoalbuminemia. 5. Protein calorie malnutrition, severe. 5. Chronic diarrhea. 6. Human immunodeficiency virus/acquired immunodeficiency syndrome. 7. History of corneal transplant. 8. Colitis. PLAN: Continue current medication. The patient has been ordered for transfusion of packed RBC today. We will correct the potassium deficiency. Obtain labs in a.m. business strategy manager [facility] Further consults as needed. JOB# [id number]
[2017-06-12 07:12] LABS: HEMATOCRIT 26.3 % (39.0-49.0); HEMOGLOBIN 8.4 gm/dL (13.2-17.3); MEAN CELL VOLUME 74.5 fl (80-99); MEAN CORPUSCULAR HEMOGLOBIN 23.8 pg (26.0-30.0); MEAN PLATELET VOLUME 7.3 fl; PLATELET COUNT 332 Th/cmm (150-400); RED BLOOD COUNT 3.53 Mil/cmm (4.30-5.70); RED CELL DISTRIBUTION WIDTH 21.3 % (11.5-20.0); WHITE BLOOD COUNT 8.2 Th/cmm (4.8-10.8)
[2017-06-12 07:32] LABS: ANION GAP 6.7 (7.0-16.0); BUN - UREA NITROGEN 7 mg/dL (7-25); CALCIUM SERUM 7.8 mg/dL (8.6-10.3); CARBON DIOXIDE 20.4 mEq/L (21.0-31.0); CHLORIDE 113 mEq/L (98-107); CREATININE - SERUM 0.5 mg/dL (0.7-1.3); GLUCOSE 104 mg/dL (70-105); POTASSIUM SERUM 3.1 mEq/L (3.5-5.1); SODIUM SERUM 137 mEq/L (136-145)
[2017-06-12 08:21] LABS: BAND NEUTROPHILE 8 % (0-10); NEUTROPHILS 85 % (40-80); TOTAL CELLS COUNTED 100
[2017-06-12 08:22] LABS: ANISOCYTOSIS 1+; MICROCYTOSIS 2+; PLATELET ESTIMATE ADEQUATE (NORMAL); PLATELET MORPHOLOGY NORMAL (NORMAL)
[2017-06-12] MEDS: Ferrous Sulfate 325 MG TAB PO SCH (08:33)
[2017-06-12] MEDS: Bismuth Subsalicylate 236mL PO SCH (08:33)
[2017-06-12] MEDS: Multivitamin Tab PO SCH (08:33)
[2017-06-12] MEDS: Hydrocodone/APAP 5mg/325mg Tab PO PRN (11:18)
== END 2017-06-12 14:00 | disposition home or self-care (01) | DRG 892 ==
LOC: MSI 02:06
PROVIDERS: ADMIT Preventive Medicine Preventive Medicine/Occupational Environmental Medicine; ATTEND Preventive Medicine Preventive Medicine/Occupational Environmental Medicine
PROC: 30233N1 Transfusion of Nonautologous Red Blood Cells into Peripheral Vein, Percutaneous Approach (ICD-10-PCS; principal; 2017-06-09)
DX: B20 Human immunodeficiency virus [HIV] disease (principal); A41.9 Sepsis, unspecified organism; E43 Unspecified severe protein-calorie malnutrition; Z94.82 Intestine transplant status; G62.9 Polyneuropathy, unspecified; K52.9 Noninfective gastroenteritis and colitis, unspecified; E83.52 Hypercalcemia; E87.6 Hypokalemia; R55 Syncope and collapse; E86.0 Dehydration; D64.9 Anemia, unspecified; R73.9 Hyperglycemia, unspecified; E88.09 Other disorders of plasma-protein metabolism, not elsewhere classified; Z94.7 Corneal transplant status; Z68.23 Body mass index [BMI] 23.0-23.9, adult
CPT/HCPCS: 36415-UA; 80048-TC; 80053-TC; 81001-TC; 82270-TC; 82607-90; 82728-90; 82746-90; 83540-90; 83550-90; 83615-TC; 83690-TC; 85007-TC; 85027-TC; 85610-TC; 85652-TC; 86141-TC; 86850-TC; 86900-TC; 86901-TC; 86922-TC; 87230-TC; 89055-TC; 90799; J1956; J2001; J3480; J7040; J7042; P9016; Q0162; Z7610